=== PATIENT | female | born 1965 | race Caucasian/White ===

== ENCOUNTER 2020-07-02 08:46 | Outpatient (CLI) | payer OTHER ==
[2020-07-02 09:33] VITALS: BP 120/80
--- NOTE | 2020-07-02 09:33 | SLEEP CARE CONSULTATION ---
Information from patient questionnaire entered by Subha Tyler. I have reviewed and concur with the information entered by Subha Tyler. This document represents the service I personally performed and the decisions made by me, Zainab Leavitt ARNP. History of Present Illness Service Date and Time: 07/02/2020 0846 Reason for Visit: New patient Chief Complaint: reports: Unrefreshed sleep (most days), Snoring (according to daughter, wakes her up when she falls asleep sitting up), Excessive daytime sleepiness, Fatigue, Frequent awakenings at night (reduced with Lexapro). denies: Insomnia, Observed pauses in breathing (does not share a bed, none witnessed), Other Date of Onset: 1998 Usual bedtime: 7805-4441 Time it takes to fall asleep: 10 minutes Snores at night: Yes Observed to quit breathing while asleep: No Sleeps alone due to snoring: Yes Number of times waking at night: 1+ Reasons for waking at night: reports: Snoring (when sitting up and fall asleep), Bathroom. denies: Choking, Gasping for air Toss, Turn, or Twitch while sleeping: Yes Recalls having dreams: Yes Usually gets out of bed at: [id number] Feels refreshed in the morning: No Morning headache: Yes (sometimes; almost every morning for a time, now intermittent) Sleepy or fatigued during the day: Yes Ever fallen asleep while driving: Yes (no accident, some drowsy driving) Takes day naps: Yes (weekends occasionally; 30 minutes or so) Dreams during day naps: No Prior sleep studies: No Additional HPI information: I had the pleasure of seeing TORREY CARRERO today regarding the possibility of her having a sleep disorder. Her current complaints are frequent night awakenings, unrefreshed sleep, excessive daytime sleepiness and fatigue. Patient complains of being very tired all the time. She has fallen asleep an odd times like at bible study. She was waking up very frequently but since starting Lexapro this has reduced. She has gained weight recently due to stress from her and work challenges. Her father did have sleep apnea that was treated but he has . A couple of her brothers are also being treated with CPAP. She is pre-diabetic and has depression. - Parasomnia Symptoms Ever been unable to move upon waking from sleep: Yes (as a kid) Walks in sleep: No Talks in sleep: Yes (once per her ) Ever acted out dreams in sleep: No Ever felt weak in the knees when startled or emotional: No Bothered by creepy, crawly, restless sensations in legs: No Problems with memory or concentration: Yes (both; stops midsentence when talking) Subjective Initial [place] Sleepiness Scale score: 12 (in 2019) Past Medical History Past Medical History: reports: Claustrophobia, Insulin resistance (pre-diabetic ), Depression, Other (eczema). 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 Patient is Single and lives in [place]. Have you smoked in the past 12 months: No Alcohol use: Yes Alcohol amount and frequency: 6 oz, rarely Caffeine use: No Family History Family history of sleep disordered breathing: Yes Family Hx Sleep Apnea: Mother: Snoring, Father: Snoring, Sleep apnea - Treated (father now ), Sibling: Snoring, Sleep apnea - Treated Allergies and Home Medications Drug allergies reviewed: Yes (Sulfa, penicillin, flu vaccine, tetanus vaccine) Home medication list reviewed: Yes Allergy and home medication list: aspirin lexapro zyrtec flonase allergy eye drops retinal cream other allergy pill, not sure of name Review of Systems Weight gain over past 5 years: 45 Cardiovascular: denies: high blood pressure, palpitations, chest pain, irregular heart rate or pulse, leg or foot swelling Respiratory: reports: sputum production. denies: shortness of breath Gastrointestinal: reports: heartburn. denies: difficulty swallowing Urinary: reports: incontinence (with sneezing/coughing) Neurological: reports: headaches, head trauma. denies: seizure, speech dy sfunction, gait or balance problems Psychiatric: reports: depression, claustrophobia. denies: Attention Deficit Hyperactivity, anxiety, mood disorder Ear/Nose/Throat: reports: nasal congestion (has allergies), nose bleeds, dry mouth/throat (intermittent). denies: sinus problems, injury to nose, tonsillectomy, wisdom teeth removed Endocrine: reports: sluggishness, too hot or cold. denies: thyroid disease Musculoskeletal: reports: joint pain, back pain, mobility problems Immunologic: reports: sneezing, allergies to food or environment Physical Exam Blood Pressure: 120/80 Cuff size: long Heart Rate: 67 O2 Saturation: 98 Height: 5 ft 4.5 in Weight: 277 lb Body Mass Index: 46.7 BMI Classification: Morbidly Obese Neck circumference: 15 (inches) HEENT: No craniofacial malformation Nostrils: patent to airflow Turbinates: normal Septum: midline Mouth and throat: narrow oropharynx Soft palate: normal Hard palate: arched Uvula: normal Uvula visualization: 25% Mallampati Class III Tongue: enlarged in size with teeth santos on lateral edges Tonsils: 2+ Chin and jaw: normal size and position Neck: normal w/o lymphadenopathy or thyromegaly Heart: regular rate and rhythm Lungs: clear bilaterally Impression and Plan 1. Suspected Obstructive Sleep Apnea-Hypopnea Syndrome, as suggested by a history of loud and irregular snoring, morning headache, frequent awakening during the night, unrefreshed sleep, cognitive impairment, and excessive daytime sleepiness. I reviewed with patient that a narrow oropharynx and obesity are common predisposing factors for obstructive sleep apnea-hypopnea syndrome. I recommend proceeding to polysomnography to confirm the diagnosis and to assess severity. If the patient has significant sleep disordered breathing, a manual CPAP titration study will also be performed to find the optimal treatment pressure. I informed the patient of what the sleep studies involve and after some discussion, obtained agreement to proceed. The pathophysiology of obstructive sleep apnea-hypopnea syndrome was discussed with the patient and health risks of cardiovascular and cerebrovascular disease if not treated. AASM brochure for obstructive sleep apnea-hypopnea syndrome given and reviewed. Risks of drowsy driving discussed in detail and patient advised to avoid long distance driving and to cloth covered helmet puller at the first sign of drowsiness. Patient agreed to plan. * Schedule polysomnography +- manual CPAP titration study. * Avoid long distance driving or driving when feeling sleepy. * Avoid alcohol, sedative and muscle relaxant around bedtime. * Attempt to lose weight. * Review instructions provided by trained office staff on how to prepare for the sleep study. * Return for follow-up after sleep study completed. Counseling Topics: Weight loss health impact Visit Type: In Office Time Spent with Patient (minutes): 33 Provider Statement: I spent 100% of the Face to Face Visit with the patient with greater than 50% spent counseling the patient and coordination of care.
== END 2020-07-02 08:47 | disposition home or self-care (01) ==
LOC: SC 08:46
PROVIDERS: ATTEND Nurse Practitioner Family
DX: R06.83 Snoring (principal); G47.8 Other sleep disorders; G47.10 Hypersomnia, unspecified; F32.9 Major depressive disorder, single episode, unspecified; E66.01 Morbid (severe) obesity due to excess calories; Z68.42 Body mass index [BMI] 45.0-49.9, adult
CPT/HCPCS: 99203; 99212

== ENCOUNTER 2020-08-08 20:35 | Outpatient (CLI) | payer OTHER | END 2020-08-08 20:36 | disposition home or self-care (01) | LOC: SC 20:35 | PROVIDERS: ATTEND Nurse Practitioner Family | DX: G47.33 Obstructive sleep apnea (adult) (pediatric) (principal); E66.01 Morbid (severe) obesity due to excess calories; Z68.42 Body mass index [BMI] 45.0-49.9, adult | CPT/HCPCS: 95811 ==

== ENCOUNTER 2020-08-19 13:13 | Outpatient (CLI) | payer OTHER ==
--- NOTE | 2020-08-19 13:49 | SLEEP CARE CONSULTATION ---
Information from patient questionnaire entered by Tiffanie Saldana. I have reviewed and concur with the information entered by Tiffanie Saldana. This document represents the service I personally performed and the decisions made by me, Elsa Orellana MD, [facility]. History of Present Illness Service Date and Time: 08/19/2020 1313 Initial [place] Sleepiness Scale score: 12 (in 2019) Current [place] Sleepiness Scale score: 18 Additional HPI information: HPI: Ms. Douglas returns for follow up of the split-night polysomnogram she had on 08/08/2020. The sleep study showed the following: The quality of the study is good. CPAP was initiated 169.3 minutes into the study and titrated up from 4 cmH2O and titrated up to CPAP at 8 cmH2O. DIAGNOSTIC: The patient had minimally reduced sleep efficiency. The sleep architecture was abnormal for sleep fragmentation and lack of REM and slow wave sleep (N3). Respiratory monitoring showed very severe obstructive sleep apnea- hypopnea (AHI = 63.0) associated with frequent arousals, oxyhemoglobin desaturation and mild hypoxia (fernanda oxygen saturation of 83%). The patient did not sleep supine during this study. Snoring was very loud in intensity. There was mild periodic limb movement of sleep not contributing to the sleep fragmentation. THERAPEUTIC: CPAP at 8 cmH2O appeared to be optimal (AHI of 1.8 per hour on the pressure). There was supine REM sleep on the pressure. Oxygen saturation was minimally low. Lower CPAP settings allowed more frequently residual respiratory events. The patient appeared to have tolerated positive airway pressure therapy well. The patients sleep efficiency was slightly reduced due to the prolonged awakening at the time of CPAP initiation. The sleep architecture was normal with REM and slow wave sleep (N3) rebound. There was no significant periodic leg movement of sleep. Cardiac rhythm was normal sinus rhythm without significant arrhythmia. No abnormal behavior (parasomnia) observed during the night. The patient was informed of these findings. I explained to her the pathophysiology behind obstructive sleep apnea. We then spent quite a bit of time discussing different treatment options. For mild obstructive sleep apnea, surgery and oral appliance are alternatives to nasal CPAP therapy but in moderate or severe cases, nasal CPAP is the most effective and reliable treatment. After some discussion, she opted to go with the nasal CPAP therapy. I explained to her how CPAP machine works and what to expect when using the machine. She is encouraged to use CPAP every night especially in the first 2 to 3 nights in order to get used to it. She should call me or her CPAP supplier to discuss any mechanical problem that may occur. If she snores while wearing the CPAP or feels like she needs more air from the machine, she should notify me and I will increase the pressure. IMPRESSION: 1. Obstructive Sleep Apnea-Hypopnea Syndrome, very severe, associated with mild hypoxemia and sleep fragmentation. Obviously this is the cause of the patients symptoms of unrefreshed sleep, and excessive daytime sleepiness. As mentioned above, the patient will be started on autoCPAP set at 5 - 10 cmH2O. I anticipate good treatment compliance. PLAN: 1. Prescription made for an autoCPAP with heated humidifier and related supplies. 2. Attempt to lose weight. 3. Be careful when driving until her sleepiness resolves completely on nasal CPAP therapy. 4. Return in one month for follow up. I will assess her response and compliance at that time. Sleep Study - Results Type of Sleep Study: Polysomnography Prior sleep studies: No Allergies and Home Medications Drug allergies reviewed: Yes Home medication list reviewed: Yes Review of Systems Review of systems same as previous: Yes Physical Exam Vital signs obtained and entered by: To minimize the risk of COVID-19 exposure, detailed exam was not performed. Height: 5 ft 4.5 in Weight: 277 lb Body Mass Index: 46.7 BMI Classification: Morbidly Obese Impression and Plan IMPRESSION: 1. Obstructive Sleep Apnea-Hypopnea Syndrome, very severe, associated with mild hypoxemia and sleep fragmentation. Obviously this is the cause of the patients symptoms of unrefreshed sleep, and excessive daytime sleepiness. As mentioned above, the patient will be started on autoCPAP set at 5 - 10 cmH2O. I anticipate good treatment compliance. PLAN: 1. Prescription made for an autoCPAP with heated humidifier and related supplies. 2. Attempt to lose weight. 3. Be careful when driving until her sleepiness resolves completely on nasal CPAP therapy. 4. Return in one month for follow up. I will assess her response and compliance at that time. Visit Type: In Office Time Spent with Patient (minutes): 15 Provider Statement: I spent 100% of the Face to Face Visit with the patient with greater than 50% spent counseling the patient and coordination of care.
== END 2020-08-19 13:14 | disposition home or self-care (01) ==
LOC: SC 13:13
PROVIDERS: ATTEND Internal Medicine Pulmonary Disease
DX: G47.33 Obstructive sleep apnea (adult) (pediatric) (principal); E66.01 Morbid (severe) obesity due to excess calories; Z68.42 Body mass index [BMI] 45.0-49.9, adult
CPT/HCPCS: 99212; 99213